=== PATIENT | female | born 2005 | race Caucasian/White ===

== ENCOUNTER 2025-03-04 10:23 | Outpatient (CLI) | payer OTHER ==
--- NOTE | 2025-03-04 13:42 | RADIOLOGY REPORT ---
CLINICAL INDICATION: PAIN IN RIGHT KNEE TECHNIQUE: Multiplanar, multisequence MRI of the right knee was performed without contrast. Contrast: None. COMPARISON: None. FINDINGS: Joint space and synovium: There is moderate knee joint effusion. No synovitis. Bones and articular cartilage: There is bone marrow edema in the lateral femoral condyle secondary to an acute fracture. There is flattening of the posterior aspect of the lateral tibial plateau with bone marrow edema. There is a nondisplaced fracture of the fibular head. The articular cartilage is preserved in the patellofemoral compartment. There is diffuse chondral thinning on both sides of the medial compartment. Lateral compartment articular cartilage is intact. Menisci: The medial meniscus is intact. There is a horizontal tear of the anterior horn and body of the lateral meniscus. Tendons and ligaments: The tendons in the posterior knee are intact. The extensor mechanism is intact. The anterior cruciate ligament is torn at its midsubstance and femoral attachment. The posterior cruciate ligament is intact. The medial collateral ligament and the lateral collateral ligament stabilizing complex are intact. Muscles: Regional muscles are preserved in bulk and signal characteristics. Other: None. IMPRESSION: 1. Acute fracture of the lateral femoral condyle. 2. Impaction type injury in the posterolateral tibial plateau. 3. Nondisplaced fracture of the fibular head. 4. ACL tear. 5. Horizontal tear of the anterior horn and body of the lateral meniscus. HS:Y
== END 2025-03-04 23:59 | disposition home or self-care (01) ==
LOC: MRI02 10:23
PROVIDERS: ATTEND Nurse Practitioner Family
DX: S83.281A Other tear of lateral meniscus, current injury, right knee, initial encounter (principal); S72.421A Displaced fracture of lateral condyle of right femur, initial encounter for closed fracture; S72.051A Unspecified fracture of head of right femur, initial encounter for closed fracture; M25.561 Pain in right knee; M25.461 Effusion, right knee; X58.XXXA Exposure to other specified factors, initial encounter; Y99.8 Other external cause status; Y93.89 Activity, other specified; Y92.89 Other specified places as the place of occurrence of the external cause
CPT/HCPCS: 73721